=== PATIENT | female | born 2000 | race Caucasian/White ===

== ENCOUNTER 2023-06-07 08:32 | Outpatient (CLI) | payer BC | END 2023-06-07 08:33 | disposition home or self-care (01) | LOC: SCSRAD 08:32 | PROVIDERS: ATTEND Chiropractor | DX: M54.50 Low back pain, unspecified (principal); M53.86 Other specified dorsopathies, lumbar region; M53.84 Other specified dorsopathies, thoracic region; M79.10 Myalgia, unspecified site | CPT/HCPCS: 72100 ==